=== PATIENT | female | born 1975 | race Caucasian/White ===

== ENCOUNTER → 2016-04-25 | Outpatient (CLI) | payer BC ==
[~2016-04-25] MED LIST: DESYREL 50MG50 MG PO; PRAVACHOL 40MG40 MG PO; PRINZIDE 25 MG-1 TAB PO
== END ==
LOC: MC.RAD 15:38
DX: Z12.31 Encounter for screening mammogram for malignant neoplasm of breast (principal)

== ENCOUNTER → 2016-09-24 | Outpatient (REF) | LOC: ZLAB.WCH 10:24 | DX: Z01.89 Encounter for other specified special examinations (principal) ==

== ENCOUNTER → 2016-12-25 | Outpatient (REF) | LOC: ZLAB.WCH 18:04 | DX: Z01.89 Encounter for other specified special examinations (principal) ==

== ENCOUNTER → 2017-03-21 | Outpatient (REF) | LOC: ZLAB.WCH 18:23 | DX: Z01.89 Encounter for other specified special examinations (principal) ==

== ENCOUNTER → 2017-06-03 | Outpatient (CLI) | payer BC | LOC: MC.RAD 05-05 10:40 | DX: Z12.31 Encounter for screening mammogram for malignant neoplasm of breast (principal) ==

== ENCOUNTER → 2017-09-22 | Outpatient (REF) | LOC: ZLAB.WCH 14:27 | DX: Z01.89 Encounter for other specified special examinations (principal) ==

== ENCOUNTER → 2018-06-16 | Outpatient (CLI) | payer BC | LOC: MC.RAD 13:37 | DX: Z12.31 Encounter for screening mammogram for malignant neoplasm of breast (principal) ==

== ENCOUNTER → 2019-08-19 | Outpatient (CLI) | payer BC | LOC: MC.RAD 06-29 11:45 | DX: Z12.31 Encounter for screening mammogram for malignant neoplasm of breast (principal) ==

== ENCOUNTER → 2021-06-28 | Outpatient (CLI) | payer BC | LOC: MC.RAD 07:31 | DX: Z12.31 Encounter for screening mammogram for malignant neoplasm of breast (principal) ==

== ENCOUNTER → 2023-12-17 | Outpatient (CLI) | payer BC | LOC: MC.RAD 13:01 | DX: Z12.31 Encounter for screening mammogram for malignant neoplasm of breast (principal) ==